=== PATIENT | male | born 1985 | race Caucasian/White ===

== ENCOUNTER 2017-12-07 21:39 | Emergency (ER) | payer OTHER ==
[2017-12-07] MEDS ORDERED: Ciproflox/Dexameth OTIC.SUSP* 7.5 ML BTL RIGHT EAR ONE (23:00)
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
[2017-12-07 23:27] VITALS: BP 145/86
== END 2017-12-07 23:31 | disposition home or self-care (01) ==
LOC: ED 21:39
DX: H60.90 Unspecified otitis externa, unspecified ear (principal); H92.01 Otalgia, right ear; F17.210 Nicotine dependence, cigarettes, uncomplicated
CPT/HCPCS: 99282; A9270-GY